=== PATIENT | female | born 1950 | race Caucasian/White ===

== ENCOUNTER → 2020-07-11 | Outpatient (CLI) | payer OTHER, SELFPAY ==
[2020-07-10 16:42] VITALS: BMI 26.0
== END | disposition home or self-care (01) ==
LOC: LABSPEC 15:00
PROVIDERS: Referring Provider Physician Assistant; Visit Provider Physician Assistant
DX: Z02.89 Encounter for other administrative examinations (principal); Z20.822 Contact with and (suspected) exposure to COVID-19
CPT/HCPCS: 87635; U0005; U0003